=== PATIENT | female | born 1980 | race Caucasian/White ===

== ENCOUNTER 2016-12-03 19:21 | Emergency (ER) | payer OTHER ==
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
--- NOTE | 2016-12-04 16:28 | Diagnostic Imaging Report ---
Cervical spine (3 views) HISTORY: Pain Alignment is normal. Disc spaces are maintained. Degenerative spur formation noted about the endplates of C4, C5, C6, and C7. Calcification is noted adjacent to the anterior margin of the C6-7 disc space that may be related to the disc annulus. The prevertebral soft tissues appear normal. IMPRESSION: 1. No acute abnormalities 2. Degenerative changes
== END 2016-12-03 23:40 | disposition home or self-care (01) ==
LOC: ER 19:21
DX: S16.1XXA Strain of muscle, fascia and tendon at neck level, initial encounter (principal); S00.03XA Contusion of scalp, initial encounter; V89.2XXA Person injured in unspecified motor-vehicle accident, traffic, initial encounter; Y93.89 Activity, other specified; Y92.488 Other paved roadways as the place of occurrence of the external cause; Y99.8 Other external cause status
CPT/HCPCS: 72050-TC; Z7502; Z7610